=== PATIENT | female | born 1975 | race Caucasian/White ===

== ENCOUNTER 2016-08-20 05:55 | Emergency (ER) | payer OTHER ==
[2016-08-20 07:33] VITALS: BP 126/75
== END 2016-08-20 07:33 | disposition home or self-care (01) ==
LOC: ED 05:55
DX: K29.00 Acute gastritis without bleeding (principal); R51 Headache; Z77.098 Contact with and (suspected) exposure to other hazardous, chiefly nonmedicinal, chemicals; Z79.899 Other long term (current) drug therapy
CPT/HCPCS: 82962; J1885; Q0162